=== PATIENT | female | born 2000 ===

== ENCOUNTER 2019-08-15 18:01 | Inpatient (IN) | payer OTHER, MEDICAID ==
[2019-08-15] MEDS ORDERED: Lactated Ringers 1000 ML Bag* 1,000 ML IV ONE (18:29)
[2019-08-15] MEDS ORDERED: Buffered Lidocaine 1% SYRIN* 1 ML/SYRINGE INTRADERM ONE (18:29)
[2019-08-15] MEDS ORDERED: Dinoprostone* 10 MG VAG.SUPP VAGINAL ONE (18:29)
--- NOTE | 2019-08-15 18:44 | HP ---
General Information - Reason for Visit Pt here for cervical ripening and induction of labor for postdates - General Information Maternal Age: 19 Grav: 1 Para: 0 SAB: 0 IEA: 0 Estimated Due Date: 08/06/19 Determined By: Early Ultrasound Gestational Age in Weeks/Days: 41 2/7 Maternal Blood Type and Rh: A Positive - Results this Serology/RPR Result: Non-Reactive Rubella Result: Immune HBsAg Result: Negative HIV Result: Negative GBS Culture Result: Negative Past Medical History Delivery History: See Records - Primiparous Pertinent Past Medical History: See Records - migraines Pertinent Past Surgical History: None Pertinent Family History: Non-Contributory - Antepartal Records Antepartal Records: Reviewed, Uncomplicated Review of Systems Constitutional: Comfortable CV Complaint: No Respiratory: Shortness of Breath: No Gastrointestinal: No Nausea/Vomiting Genitourinary: No Dysuria, No Bleeding, No Leaking Fluid Musculoskeletal: No Complaint, No Epigastric Pain Neurological: No Headache, No Visual Changes Movement: Normal Exam Allergies/Adverse Reactions: Allergies No Known Allergies Allergy (Verified 08/15/19 18:36) T-98.4, P-98, R-20, BP 125/78, O2-99% - Measurements Height: 5 ft 4 in Weight: 90.718 kg Weight in lbs: 200.123838 Body Mass Index (BMI): 34.3 Pre- Weight: 70.307 kg Weight Gained This : 45 lbs and 0 ozs - Exam Breast: Breast Exam Deferred CVA: No CVA Tenderness Extremities: No Edema Heart: Normal Rhythm/Heart Sounds HEENT: No Significant Findings Lungs: Clear Bilaterally Rectal: Rectal Exam Deferred Reflexes: DTR 2+ Thyroid: No Thyromegaly - Abdominal Exam Abdomen Exam: Non-Tender, Fundal Height Consistent with Dates - Ultrasound/Biophysical Profile Ultrasound Status: Not Done Targeted Exam Findings See L&D Outpatient Visit Provider Note for Findings: N/A Estimated Weight: 8# Cervical Exam: 1cm Effacement: 50% Station: -2 Presenting Part: Vertex Membrane Status: Intact Bleeding/Discharge: None EFM Findings - External Monitor Findings Baseline Heart Rate: 125 External Monitor Findings: Accelerations Present, No Pattern of Variable or Late Decelerations, Variability Moderate, Baseline Stable Contractions: None Assessment/Plan - Assessment 19 year old at 41 2/7 weeks gestation here for cervical ripening and IOL for postdates . No evidence of acidemia. Membranes intact. - Obstetrical Risk Factors Obstetrical Risk Factors: Post-Dates - Plan Plan: Cervical Ripening, Admit - Anticipate Vaginal Delivery - Date/Time of Admission Date of Admission: 08/15/19 Time of Admission: 18:00
[2019-08-15 20:12] LABS: Urine Benzodiazepine Screen None Detected (None Detect); Urine Opiates Screen None Detected (None Detect)
[2019-08-15] MEDS ORDERED: hydrOXYzine HCL TAB* 50 MG PO ONE (23:00)
--- NOTE | 2019-08-16 09:22 | PN ---
Progress Note - Progress Note Date of Service: 08/16/19 Note: S: Reports feeling some UCs more than others, occasionally having to breathe through them but also able to sleep overnight O: B/P: 136/75, P: 83, R: 18, T: 98.0 FHR: baseline 130, moderate variability, + accelerations, no decelerations UCs: q 2-5 min, mild to palpation, pt not feeling most of them VE: 1.5/50/-2, soft. Cervidil removed A: IUP at 41 3/7 weeks Category I FHR, no evidence of metabolic acidemia Self Score: 5 P: PARQ discussion re: further ripening vs pitocin augmentation. Will put pt back on monitor. If UCs too frequent, will proceed with low dose pitocin Otherwise will trial one dose of oral misoprostol Reassess PRN Anticipate SVB
[2019-08-16] MEDS ORDERED: Oxytocin in LR* 20 UNITS/1,000 ML BAG IVPB ONE (12:01)
--- NOTE | 2019-08-16 12:08 | PN ---
Progress Note - Progress Note Date of Service: 08/16/19 Note: Pt feeling like UCs less strong than they were before she got in the tub. O: FHR: baseline 135, moderate variability, + accelerations, no decelerations UCs: q 2-5 min, mild to palpation, <45s VE deferred A: IUP at 41 3/7 weeks No evidence of metabolic acidemia P: PARQ discussion re: low dose IV pitocin; Corrine agrees Reassess PRN Anticipate SVB
[2019-08-16] MEDS ORDERED: Oxytocin in LR* 20 UNITS/1,000 ML BAG IVPB SCH (13:00)
[2019-08-16 13:18] LABS: ABS Lymphocytes 1.6 10^3/ul (1.0-4.8); ABS Monocytes 0.8 10^3/ul (0-0.8); ABS Neutrophils 12.9 10^3/ul (1.5-7.7); Eosinophil % 0.2 %; Hematocrit 33 % (35-47); Hemoglobin 11.1 g/dL (12.0-16.0); Lymphocyte % 10.2 %; Mean Corpuscular HGB Conc 34 g/dL (31-36); Mean Corpuscular Hemoglobin 27 pg (27-31); Mean Corpuscular Volume 80 fL (80-97); Mean Platelet Volume 9.8 fL (7.4-10.4); Platelet Count 220 10^3/uL (150-450); Red Blood Count 4.05 10^6 /uL (3.70-4.87); Red Cell Distribution Width 14 % (10-15); White Blood Count 15.3 10^3/uL (3.5-10.8)
[2019-08-16] MEDS ORDERED: Dinoprostone* 10 MG VAG.SUPP VAGINAL ONE (18:32)
--- NOTE | 2019-08-16 19:33 | PN ---
Progress Note - Progress Note Date of Service: 08/16/19 Note: S: Up walking the hallway, friend and family at bedside, supportive. O: B/P: 132/76, P: 94, R: 17, T: 97.8 FHR: baseline 130, mod kavya, +accels, no decels UCs: q 2-3 min prior to concluding pitocin augmentation VE: 1.5/50/-2. Membranes swept A: IUP at 41 3/7 weeks No evidence of metabolic acidemia Self score: 5 P: PARQ discussion at approx 1800 re: discontinuing pitocin and placing cervidil overnight; Corrine locke Reviewed typical progress of ripening/induction of labor Reassess PRN Anticipate SVB
--- NOTE | 2019-08-16 20:11 | PN ---
Progress Note - Progress Note Date of Service: 08/16/19 Note: Quick note: cervidil placed at 1999. Pt tolerated well.
[2019-08-16] MEDS ORDERED: Promethazine INJ(RESTRICTED)* 25 MG/ML 1 ML VIAL IV ONE (22:00)
[2019-08-16] MEDS ORDERED: Morphine INJ* 4 MG/ML 1 ML SYRINGE (NEW SYRINGE VERSION) IV ONE (22:00)
[2019-08-16] MEDS: Oseltamivir CAP* 75 MG CAP PO SCH (22:14)
[2019-08-17] MEDS: Oseltamivir CAP* 75 MG CAP PO SCH (09:58)
[2019-08-17] MEDS ORDERED: Oxytocin in LR* 20 UNITS/1,000 ML BAG IVPB ONE (11:33)
--- NOTE | 2019-08-17 11:42 | PN ---
Progress Note - Progress Note Date of Service: 08/17/19 Note: S: Patient slept well with therapeutic rest overnight. Mild cramping this am but no pain. Occasional nausea. O: VE 1.5/70/vtx -2 FHT 135, mod kavya, +accels, no decels VSS, afebrile A: IUP @ 41+4 weeks gestation for induction Membranes intact No evidence acidemia P: PARQ discussion Cook's balloon catheter and low dose pitocin for continued ripening/induction; patient in agreement. Will reassess PRN.
[2019-08-17] MEDS ORDERED: Oxytocin in LR* 20 UNITS/1,000 ML BAG IVPB SCH (12:00)
--- NOTE | 2019-08-17 16:06 | PN ---
Progress Note - Progress Note Date of Service: 08/17/19 Note: S: Patient was more uncomfortable previously but no ctx less painful after time in tub. Planning to ambulate O: VE deferred Pit @ 7 FHT 140, +accels, single variable early decel, mod variability UCs irregular, q 2-4 min VSS, afebrile Cook's in place A: IUP @ 41+4 weeks gestation for post dates induction Membrane intact Doubt metabolic acidemia P: Continue to titrate pitocin as indicate. Encourage position changes and ambulation.
--- NOTE | 2019-08-17 20:43 | PN ---
Progress Note - Progress Note Date of Service: 08/17/19 Note: S: Feeling pretty comfortable, mild cramping and belly tightening. Was unable to urinate approx 1.5 hours ago but felt like she had a small leak of fluid upon standing up. Has not continued to leak. O: VE deferred Cook's balloon in place Pit @ 23 FHT 125, no decels, mod kavya, +accels VSS, afebrile A: IUP for induction for post dates Doubt acidemia Membranes intact P: Discussion of options to continue induction. Patient strongly prefers to continue pitocin until Cook's removed then rest overnight. Reviewed therapeutic rest if desired. Will likely plan amniotomy and resumption of pitocin in am after rest overnight.
[2019-08-17] MEDS ORDERED: Morphine INJ* 4 MG/ML 1 ML SYRINGE (NEW SYRINGE VERSION) IV PRN (20:44)
[2019-08-17] MEDS ORDERED: Promethazine INJ(RESTRICTED)* 25 MG/ML 1 ML VIAL IV PRN (20:44)
[2019-08-17] MEDS: Lactated Ringers 1000 ML Bag* 1,000 ML IV SCH (23:15)
[2019-08-18] MEDS: Oseltamivir CAP* 75 MG CAP PO SCH (08:08)
--- NOTE | 2019-08-18 15:55 | PN ---
Progress Note - Progress Note Date of Service: 08/18/19 Note: S: Pt is resting in bed, eating. Pt requesting an elective . Pt is concerned about mec stained fluid. She is frustrated that the IOL has not worked as of yet. O: VE deferred FHT 125, no decels, mod kavya, +accels No contractions A: IUP here for induction for post dates VSS, afebrile Membranes ruptured, mec fluid P: Discussion of options to continue induction. Patient strongly desires to move toward a . Risks vs benefits of delivery discussed. Aware of risks, strong preference for . Consultation with Cristobal Palencia MD. Relayed patient preferences. Given failure of IOL, will general counsel pt for . Will needs to wait 6-8 hours given recent meal before eligible for surgery. Last meal at 3pm. Willing to try misoprostol to see if can initiate labor while waiting for surgery. Anticipate operative .
[2019-08-18] MEDS: Misoprostol TAB* 100 MCG PO SCH (16:13)
[2019-08-18] MEDS ORDERED: Sodium Citrate/Citric Acid* 15 ML UDC PO ONE (21:03)
[2019-08-18] MEDS ORDERED: Sodium Citrate/Citric Acid* 15 ML UDC ONE (21:23)
[2019-08-18] MEDS ORDERED: ceFOXitin 2 GM IVPREMIX* 2 GM/50 ML BAG ONE (21:23)
[2019-08-18] MEDS ORDERED: Morphine PF AMP (0.5MG/ML)* 5 MG/10 ML AMP ONE (21:41)
[2019-08-18] MEDS ORDERED: OXYTOCIN* 10 UNITS/ML 1 ML VIAL ONE (21:41)
[2019-08-18] MEDS ORDERED: Bupivacaine 0.5% SDV PF* 30ML VIAL ONE (21:55)
[2019-08-18] MEDS ORDERED: Lactated Ringers 1000 ML Bag* 1,000 ML IV SCH (22:00)
[2019-08-18] MEDS ORDERED: Ketorolac INJ* 30 MG/ML 1 ML VIAL ONE (22:30)
[2019-08-18] MEDS ORDERED: Ondansetron INJ* 2 MG/ML VIAL ONE (22:30)
[2019-08-18] MEDS ORDERED: EPHEDrine (Pressors)* 50 MG/ML VIAL ONE (22:30)
[2019-08-18] MEDS ORDERED: diPHENhydraMINE IV* 50 MG/ML 1 ml VIAL (BENADRYL) ONE (23:05)
[2019-08-18] MEDS ORDERED: Metoclopramide IV* 5 MG/ML 2 ML VIAL ONE (23:05)
[2019-08-18] MEDS ORDERED: Naloxone* 0.4 MG/ML 1 ML VIAL IV PRN ×2 (23:40→23:41)
[2019-08-18] MEDS ORDERED: fentaNYL* 50 MCG/ML 2 ML VIAL (100 MCG VIAL) IV PRN (23:40)
[2019-08-18] MEDS ORDERED: Scopolamine 1.5 mg* PATCH TRANSDERM PRN (23:41)
[2019-08-18] MEDS ORDERED: Ondansetron INJ* 2 MG/ML VIAL IV PRN (23:41)
[2019-08-18] MEDS ORDERED: HYDROcodone/ACETAMIN 5-325 MG* 1 TAB PO PRN ×2 (23:41)
[2019-08-18] MEDS ORDERED: Nalbuphine* 10 MG/ML 1 ML VIAL IV PRN (23:41)
[2019-08-18] MEDS ORDERED: DiMENhydriNATE IV* 50 MG/ML VIAL IV PUSH PRN (23:41)
[2019-08-18] MEDS ORDERED: diPHENhydraMINE IV* 50 MG/ML 1 ml VIAL (BENADRYL) IV PRN (23:41)
[2019-08-19] MEDS ORDERED: ceFOXitin 2 GM IVPREMIX* 2 GM/50 ML BAG IVPB ONE (02:18)
--- NOTE | 2019-08-19 02:57 | OP ---
DATE OF OPERATION: 08/18/19 - ROOM #115 DATE OF : 99 SURGEON: Makenzie Palencia MD CLINICAL NURSING INTERN: Lisa Chery CNM ANESTHESIA: Spinal. PRE-OP DIAGNOSIS: Intrauterine gestation at 41 weeks 5 days, failed induction of labor. POST-OP DIAGNOSES: Intrauterine gestation at 41 weeks 5 days, failed induction of labor. OPERATIVE PROCEDURE: Primary low transverse section. ESTIMATED BLOOD LOSS: 700 mL. FLUIDS: Crystalloid. DRAINS: Johnson catheter. INDICATIONS: The patient underwent induction of labor at 41 weeks and 2 days gestational age. Over the course of 72 hours, she received 2 doses of Cervidil and was started on Pitocin twice and received 1 dose of misoprostol. After that , she was requesting a primary section rather than continuing with attempts for induction of labor. The risks of the procedure were discussed with her thoroughly including slightly increased risk of respiratory problems in the and maternal risks of infection, bleeding, pain, injury to nearby organs, and increased risk with future pregnancies. All questioned were answered. Consent was signed. FINDINGS: Male infant, Apgars 9 and 9, weight 10 pounds 5 ounces. Normal- appearing uterus, ovaries, and tubes. Normal-appearing placenta. DESCRIPTION OF PROCEDURE: The patient was taken to the operating room where she was given a spinal anesthesia that was found to be adequate. She was prepped and draped in the dorsal supine position with leftward lift. A Pfannenstiel skin incision was made with a scalpel and carried down to the underlying layer of fascia. The fascia was incised on either side of the midline and the fascial incision extended laterally with the combination of sharp and blunt dissection. The inferior edge of the fascial incision was grasped with Dipika clamps, tented up, and dissected down with sharp and blunt dissection. Then, the superior edge of the fascial incision was grasped with Dipika clamps, tented up, and dissected down with the combination of sharp and blunt dissection. The rectus muscles were in the midline and the peritoneum entered bluntly. A bladder blade was inserted and a transverse incision was made in the lower uterine segment with the scalpel. The incision was extended superiorly and inferiorly with blunt pressure. There was difficulty in delivering the , but after switching the sides of the table and repositioning, the head delivered followed by the right arm and the shoulders, and then rest of the body. The cord was milked towards the baby and after more than a minute, it was clamped x2, and cut and the baby was handed to operator weapon locating radar. The placenta was delivered with manual removal and appeared intact. The uterus was then exteriorized and cleared of clots and debris. The uterine incision was closed with 0 Vicryl in a running locked suture with a second layer of suture imbricating the first. The abdomen was irrigated. The uterus was then placed back into the abdominal cavity. The gutters were cleared of clots. The incision was inspected and good hemostasis was noted. The peritoneum was closed with 3-0 Vicryl in a running unlocked fashion. The rectus muscles were inspected and good hemostasis was noted. The fascia was then closed with 0 Vicryl in a running unlocked fashion. The subcuticular layer was reapproximated with 3-0 Vicryl and 3 interrupted sutures. The skin was then closed with a subcuticular stitch of 4-0 Monocryl in a running subcuticular fashion. The incision was cleaned and Mastisol and Steri-Strips were placed, covered by a dressing. The patient was then moved to the stretcher and taken to the recovery room in stable condition. [id number]/[facility] #: [id number] KERRY
[2019-08-19] MEDS: Lactated Ringers 1000 ML Bag* 1,000 ML IV SCH (04:39)
[2019-08-19] MEDS: Ketorolac INJ* 30 MG/ML 1 ML VIAL IV SCH ×4 (06:07→18:40)
[2019-08-19] MEDS: Acetaminophen TAB* 325 MG PO SCH ×4 (06:20→12:20)
[2019-08-19] MEDS: Misoprostol TAB* 100 MCG PO SCH ×2 (08:04→08:05)
[2019-08-19] MEDS: Oseltamivir CAP* 75 MG CAP PO SCH (10:25)
[2019-08-19 13:26] LABS: Hematocrit 25 % (35-47); Hemoglobin 8.6 g/dL (12.0-16.0); Mean Corpuscular HGB Conc 34 g/dL (31-36); Mean Corpuscular Hemoglobin 27 pg (27-31); Mean Corpuscular Volume 81 fL (80-97); Mean Platelet Volume 8.7 fL (7.4-10.4); Platelet Count 193 10^3/uL (150-450); Red Blood Count 3.14 10^6 /uL (3.70-4.87); Red Cell Distribution Width 14 % (10-15); White Blood Count 12.6 10^3/uL (3.5-10.8)
[2019-08-19] MEDS ORDERED: Glycerin ADULT SUPP PR PRN (15:20)
[2019-08-19] MEDS ORDERED: Witch Hazel PAD* JAR TOPICAL PRN (15:20)
[2019-08-19] MEDS ORDERED: Zolpidem TAB* 5 MG PO PRN (15:20)
[2019-08-19] MEDS ORDERED: Dibucaine 1% 28.35 GM TUBE PR PRN (15:20)
[2019-08-19] MEDS ORDERED: oxyCODONE TAB* 5 MG TAB PO PRN (15:20)
[2019-08-19] MEDS: Simethicone TAB* 80 MG TAB.CHEW PO SCH ×2 (15:50→20:20)
[2019-08-19] MEDS ORDERED: Lactated Ringers 1000 ML Bag* 1,000 ML IV SCH (16:00)
[2019-08-19] MEDS: Docusate CAP* 100 MG PO SCH ×2 (17:11→20:20)
[2019-08-19] MEDS: Ferrous Gluconate TAB* 324 MG TAB PO SCH ×2 (17:44→22:39)
[2019-08-19] MEDS ORDERED: Ferrous Gluconate TAB* 324 MG TAB PO SCH (21:00)
[2019-08-19] MEDS: oxyCODONE TAB* 5 MG TAB PO PRN (22:19)
[2019-08-20] MEDS: Ibuprofen TAB* 600 MG PO PRN ×3 (02:39→17:07)
[2019-08-20 05:31] LABS: ABS Lymphocytes 1.6 10^3/ul (1.0-4.8); ABS Monocytes 0.6 10^3/ul (0-0.8); Eosinophil % 0.4 %; Hematocrit 25 % (35-47); Hemoglobin 8.5 g/dL (12.0-16.0); Lymphocyte % 14.3 %; Mean Corpuscular HGB Conc 35 g/dL (31-36); Mean Corpuscular Hemoglobin 28 pg (27-31); Mean Corpuscular Volume 81 fL (80-97); Mean Platelet Volume 8.5 fL (7.4-10.4); Platelet Count 212 10^3/uL (150-450); Red Blood Count 3.03 10^6 /uL (3.70-4.87); Red Cell Distribution Width 14 % (10-15); White Blood Count 11.3 10^3/uL (3.5-10.8)
[2019-08-20] MEDS ORDERED: Varicella Virus Vaccine Live* 0.5 ML VIAL SUBCUT ONE (08:27)
[2019-08-20] MEDS ORDERED: Measles, Mumps,Rubella VACC* 0.5 ML/VIAL SUBCUT ONE (08:28)
--- NOTE | 2019-08-20 08:41 | PN ---
Progress Note - Progress Note Date of Service: 08/20/19 Note: S: Pt is Para 1 POD#2 s/p pLTCS at term for failed IOL. Doing OK this AM. Johnson out yesterday, voiding spontaneously. Tolerating regular diet without nausea or vomitting. Pain appropriately controlled with PO pain medications. O: AVSS, afebrile CV: RRR Pulm: non-labored respirations Abd: soft, appropriately tender to palpation, fundus firm below the U Incision: c/d/i with sutures and steris Ext: warm, nttp A/P: 19 y/o para 1 POD #2 s/p pLTCS, progressing appropriately: - AVSS, afebrile, hemodynamically stable Hct 25 - on PO Fe - Tolerating regular diet - Pain appropriately controlled, continue PO pain regimen - Voiding spontaneously - Varicella and Measles/mumps NI - Vaccine offer today - Rh+ - Encouraged ambulation - Encouraged IS - wound care reviewed - Continue routine post operative care DO YASHIRA Brown
[2019-08-20] MEDS ORDERED: Influenza VAC *QUAD* 2019-20* 0.5 ML SYRINGE IM ONE (09:00)
[2019-08-20] MEDS: Docusate CAP* 100 MG PO SCH ×3 (09:28→20:20)
[2019-08-20] MEDS: Ferrous Gluconate TAB* 324 MG TAB PO SCH ×2 (09:28→20:20)
[2019-08-20] MEDS: Oseltamivir CAP* 75 MG CAP PO SCH (09:28)
[2019-08-20] MEDS: Simethicone TAB* 80 MG TAB.CHEW PO SCH ×3 (09:29→20:20)
[2019-08-20] MEDS: Acetaminophen TAB* 325 MG PO PRN ×3 (09:29→20:20)
[2019-08-21] MEDS: oxyCODONE TAB* 5 MG TAB PO PRN (00:55)
[2019-08-21] MEDS: Ibuprofen TAB* 600 MG PO PRN ×2 (00:55→08:12)
[2019-08-21] MEDS: Docusate CAP* 100 MG PO SCH (08:07)
[2019-08-21] MEDS: Ferrous Gluconate TAB* 324 MG TAB PO SCH (08:09)
[2019-08-21] MEDS: Oseltamivir CAP* 75 MG CAP PO SCH (08:10)
[2019-08-21] MEDS: Acetaminophen TAB* 325 MG PO PRN (08:11)
[2019-08-21] MEDS: Simethicone TAB* 80 MG TAB.CHEW PO SCH (08:12)
[2019-08-21 09:25] VITALS: BP 93/71
[2019-08-21] MEDS ORDERED: Scopolamine PATCH Remove* 1 NOTE MISC PATCH OFF PRN (23:42)
== END 2019-08-21 13:20 | disposition home or self-care (01) | DRG 540 ==
LOC: MCHOBOUT 18:01 → MCHOB 18:33
PROVIDERS: ADMIT Midwife; ATTEND Obstetrics & Gynecology
PROC: 3E033VJ Introduction of Other Hormone into Peripheral Vein, Percutaneous Approach (ICD-10-PCS; 2019-08-18)
PROC: 3E0P7VZ Introduction of Hormone into Female Reproductive, Via Natural or Artificial Opening (ICD-10-PCS; 2019-08-18)
PROC: 10D00Z1 Extraction of Products of Conception, Low, Open Approach (ICD-10-PCS; principal; 2019-08-18 21:54)
DX: O48.0 Post-term pregnancy (principal); O62.0 Primary inadequate contractions; Z3A.41 41 weeks gestation of pregnancy; Z37.0 Single live birth
CPT/HCPCS: 36415; 59200; 80307; 85025; 85027; 86850; 86900; 86901; 90686; 90707; A9270-GY; G0480; J0694; J1200; J1885; J2270; J2405; J2550; J2590; J2765; J3490; S0191